=== PATIENT | female | born 1975 | race Caucasian/White ===

== ENCOUNTER 2017-03-11 11:50 | Outpatient (CLI) | payer BC ==
[2017-03-11 19:41] LABS: BASOPHILS % (AUTO) 0.6 %; EOSINOPHILS # (AUTO) 0.1 10^3/uL (0.0-0.7); HCT - HEMATOCRIT 43.3 % (37.0-47.0); HGB - HEMOGLOBIN 14.5 g/dL (12.0-16.0); LYMPHOCYTES # (AUTO) 1.9 10^3/uL (1.5-3.5); LYMPHOCYTES % (AUTO) 33.3 %; MEAN CORPUSCULAR HEMOGLOBIN 32.4 pg (27.0-31.0); MEAN CORPUSCULAR HGB CONC 33.4 g/dL (32.0-36.0); MEAN CORPUSCULAR VOLUME 97.1 fL (81.0-99.0); MEAN PLATELET VOLUME 12.4 fL (7.9-10.8); MONOCYTES # (AUTO) 0.4 10^3/uL (0.0-1.0); MONOCYTES % (AUTO) 7.3 %; NEUTROPHILS # (AUTO) 3.3 10^3/uL (1.5-6.6); NEUTROPHILS % (AUTO) 57.8 %; NUCLEATED RED BLOOD CELLS AUTO 0.2 /100WBC; RED BLOOD COUNT 4.46 10^6/uL (4.20-5.40); RED CELL DISTRIBUTION WIDTH 12.4 % (12.0-15.0); UNCORRECTED WHITE BLOOD COUNT 5.7 x10^3/uL; WHITE BLOOD COUNT 5.7 x10^3/uL (4.8-10.8)
[2017-03-11 19:45] LABS: BILIRUBIN,TOTAL 0.7 mg/dL (0.2-1.0); CALCIUM 9.4 mg/dL (8.5-10.3); CREATININE 0.7 mg/dL (0.4-1.0); POTASSIUM 4.2 mmol/L (3.5-5.0)
[2017-03-11 20:05] LABS: FERRITIN 14.7 ng/mL (11.0-306.8)
[2017-03-11 20:11] LABS: PLATELET ESTIMATE, MANUAL NORMAL (130-450,000) (NORMAL); WBC MORPHOLOGY (MULTIPLE) NORMAL APPEARANCE (NORMAL)
[2017-03-11 20:19] LABS: THYROID STIMULATING HORMONE 0.83 uIU/mL (0.34-5.60)
== END 2017-03-11 23:59 | disposition home or self-care (01) ==
LOC: LAB.WCP 11:50
PROVIDERS: ATTEND Physician Assistant Medical
DX: Z00.00 Encounter for general adult medical examination without abnormal findings (principal); R53.83 Other fatigue
CPT/HCPCS: 36415; 80053; 82728; 83540; 84443; 84466; 85025

== ENCOUNTER 2017-03-26 09:42 | Outpatient (CLI) | payer BC ==
--- NOTE | 2017-03-26 12:52 | Ultrasound Report ---
RENAL ULTRASOUND: 03/26/2017 CLINICAL INDICATION: Nephrolithiasis, history of congenital anomaly. COMPARISON: Renal ultrasound 03/17/2015, CT 02/14/2012. TECHNIQUE: Real-time scanning was performed with corporate sales representative static images obtained. FINDINGS: The right kidney measures 13.5 x 5.7 x 4.5 cm, and the left kidney measures 12.1 x 5.2 x 5 .1 cm. The left kidney again demonstrates nephrolithiasis. Mild hydronephrosis is seen. The right kidney appears unremarkable. Prevoid, the urinary bladder measures 13.6 x 11.0 x 9.2 cm, yielding a prevoid volume of 731 mL. Dick ateral ureteral jets are seen. Postvoid residual is 354 mL. IMPRESSION: LEFT NEPHROLITHIASIS. POSTVOID RESIDUAL OF 354 ML. JOB #: [id number] EXT JOB #:[id number]
--- NOTE | 2017-03-26 13:34 | Ultrasound Report ---
PELVIC ULTRASOUND: 03/26/2017 CLINICAL INDICATION: Right adnexal palpable abnormality on physical examination. TECHNIQUE: Transabdominal pelvic ultrasound performed for global evaluation. Transvaginal pelvic ul trasound performed for detailed evaluation. Real-time scanning performed and static images obtained. COMPARISON: 12/19/2014, 10/14/2014 FINDINGS: The uterus is anteverted, measuring 10.2 x 5.6 x 4.3 cm. The endometrium remains prominen t, now measuring 26 mm, and appears heterogeneous. No focal myometrial lesion is seen. The right ov brigitte measures 2.8 x 1.7 x 1.3 cm, and appears unremarkable. The left ovary measures 3.4 x 2.4 x 1.9 c m, and contains a 2.0 cm hemorrhagic cyst. Trace free fluid is noted in the cul-de-sac. IMPRESSION: PERSISTENT PROMINENCE OF THE ENDOMETRIUM, WHICH AGAIN APPEARS HETEROGENEOUS. A 2.0 CM H EMORRHAGIC LEFT OVARIAN CYST. JOB #: [id number] EXT JOB #:[id number]
== END 2017-03-26 09:43 | disposition home or self-care (01) ==
LOC: DI 09:42
PROVIDERS: ATTEND Physician Assistant Medical
DX: N20.0 Calculus of kidney (principal); Q63.9 Congenital malformation of kidney, unspecified; N13.30 Unspecified hydronephrosis; R19.09 Other intra-abdominal and pelvic swelling, mass and lump; N83.202 Unspecified ovarian cyst, left side; N63 Unspecified lump in breast; Z98.82 Breast implant status
CPT/HCPCS: 76770; 76830; 76856; 77066

== ENCOUNTER 2017-03-26 09:43 | Outpatient (CLI) | payer BC ==
--- NOTE | 2017-03-26 16:10 | Mammography Report ---
DIGITAL DIAGNOSTIC BILATERAL MAMMOGRAM: 03/26/2017 CLINICAL INDICATION: A 41-year-old with history of bilateral augmentation, palpable folds in left imp lant, question left implant rupture. TECHNIQUE: Bilateral CC, MLO, left true lateral, bilateral implant-displaced views were obtained. This is the patient's baseline examination. FINDINGS: The breasts demonstrate heterogeneously dense fibroglandular parenchyma bilaterally. Bilat eral subpectoral saline implants are present, without evidence of implant rupture. No suspicious mass es, clustered microcalcifications, or regions of architectural distortion are identified. IMPRESSION: BENIGN FINDINGS. NO EVIDENCE OF LEFT IMPLANT RUPTURE. RECOMMENDATION: ROUTINE ANNUAL SCREENING UNLESS OTHERWISE CLINICALLY INDICATED. BIRADS CATEGORY 2-BENIGN FINDINGS. STANDARD QUALIFYING STATEMENTS 1. This examination was reviewed with the aid of Computer-Aided Detection (CAD). 2. A negative or benign imaging report should not delay biopsy if clinically suspicious findings are present. Consider surgical consultation if warranted. More than 5% of cancers are not identified by i maging. 3. Dense breasts may obscure an underlying neoplasm. JOB #: [id number] EXT JOB #:[id number]
== END 2017-03-26 09:44 | disposition home or self-care (01) ==
LOC: DI 09:43
PROVIDERS: ATTEND Physician Assistant Medical
DX: Z12.31 Encounter for screening mammogram for malignant neoplasm of breast (principal); Z98.82 Breast implant status
CPT/HCPCS: 77066

== ENCOUNTER 2017-11-26 08:00 | Outpatient (CLI) | payer BC | END 2017-11-26 23:59 | disposition home or self-care (01) | LOC: LAB.WCP 08:00 | PROVIDERS: ATTEND Physician Assistant Medical | DX: N20.0 Calculus of kidney (principal) | CPT/HCPCS: 82365 ==

== ENCOUNTER 2018-03-10 15:00 | Outpatient (CLI) | payer BC | END 2018-03-10 15:01 | LOC: LAB.R 15:00 | PROVIDERS: ATTEND Family Medicine | DX: R31.9 Hematuria, unspecified (principal) | CPT/HCPCS: 87086 ==

== ENCOUNTER 2018-03-13 07:12 | Outpatient (CLI) | payer BC ==
--- NOTE | 2018-03-13 11:16 | CT Report ---
Procedure Date: 03/13/2018 Accession Number: [id number] / [id number] Procedure: CT - Abdomen/Pelvis W/O CPT Code: FULL RESULT: EXAM: Abdomen/Pelvis W/O DATE: 03/13/2018 7:36 AM CLINICAL HISTORY: HEMATURIA, NEPHROLITHIASIS COMPARISON: None. TECHNIQUE: Routine axial helical CT imaging was performed through the abdomen and pelvis without IV contrast. Reconstructions: Coronal and sagittal In accordance with CT protocol optimization, one or more of the following dose reduction techniques were utilized for this exam: automated exposure control, adjustment of mA and/or KV based on patient size, or use of iterative reconstructive technique. FINDINGS: Lung Bases: Normal. Right Kidney/Ureter: 1 to 2 mm calculi in the right renal collecting system. No right hydronephrosis or hydroureter. Left Kidney/Ureter: Moderate left hydronephrosis and hydroureter. 6 mm calculus in the mid left ureter, at the mid L4 vertebral body level. Multiple 2 to 3 mm calculi in the left renal collecting system. Other Solid Organs: Noncontrast images of the solid organs are grossly unremarkable. Gallbladder/Bile Ducts: Unremarkable. Peritoneal Cavity: No free fluid, free air or elliot adenopathy. Bowel is grossly unremarkable. Pelvic Organs: No bladder stones or wall thickening. Noncontrast images of the visualized pelvic organs are unremarkable. Vasculature: Unremarkable. Other: None. IMPRESSION: Obstructing 6 mm calculus in the left mid ureter, producing hydronephrosis. Bilateral smaller upper tract calculi. No right hydronephrosis. [facility]
== END 2018-03-13 07:13 | disposition home or self-care (01) ==
LOC: DI 07:12
PROVIDERS: ATTEND Family Medicine
DX: N13.2 Hydronephrosis with renal and ureteral calculous obstruction (principal)
CPT/HCPCS: 74176

== ENCOUNTER 2018-08-19 21:04 | Outpatient (CLI) | payer BC ==
--- NOTE | 2018-08-19 22:15 | XRAY Report ---
Reason: CALCULUS OF KIDNEY Procedure Date: 08/19/2018 Accession Number: [id number] / [id number] Procedure: XR - Abdomen 1 View X-Ray CPT Code: 22096 FULL RESULT: EXAM: ABDOMEN RADIOGRAPHY EXAM DATE: 08/19/2018 09:33 PM. CLINICAL HISTORY: CALCULUS OF KIDNEY. COMPARISON: ABDOMEN 1 VIEW 03/10/2018 3:34 PM. TECHNIQUE: 1 view. FINDINGS: Bowel Gas Pattern: Within normal limits. No dilated loops. Other: There are calcific densities overlying the left kidney less conspicuous than on the prior study. There are no calculi in the region of the distal ureters nor the urinary bladder. IMPRESSION: 1. A few vague calcific densities overlying the left kidney. Findings are less conspicuous than on the prior study. [facility]
--- NOTE | 2018-08-19 22:26 | Ultrasound Report ---
Reason: CALCULUS OF KIDNEY Procedure Date: 08/19/2018 Accession Number: [id number] / [id number] Procedure: US - Retroperitoneal CPT Code: FULL RESULT: EXAM: RENAL ULTRASOUND EXAM DATE: 08/19/2018 09:28 PM. CLINICAL HISTORY: CALCULUS OF KIDNEY. COMPARISON: RETROPERITONEAL 03/26/2017 9:52 AM. TECHNIQUE: Real-time scanning was performed with static images obtained. FINDINGS: Right Kidney: 12 x 4.6 x 5.6 cm. Normal echotexture with no stones, contour-deforming masses, or hydronephrosis. Left Kidney: 11.2 x 5.1 x 4.1 cm. There is mild left-sided hydronephrosis. There is a 4 mm echogenic focus lower pole of the left kidney. Bladder: Bilateral jets seen. The prevoid bladder volume was 371 cc. The postvoid bladder volume was 2.8 cc. Other: None. IMPRESSION: 1. Mild left-sided hydronephrosis with a small calculus near the lower pole of the left kidney. RAD[facility]
== END 2018-08-19 21:05 | disposition home or self-care (01) ==
LOC: DI 21:04
PROVIDERS: ATTEND Urology
DX: N13.2 Hydronephrosis with renal and ureteral calculous obstruction (principal)
CPT/HCPCS: 74018; 76770

== ENCOUNTER 2020-03-23 08:55 | Outpatient (CLI) | payer BC ==
[2020-03-23 11:58] LABS: BASOPHILS % (AUTO) 0.9 %; EOSINOPHILS # (AUTO) 0.2 10^3/uL (0.0-0.7); EOSINOPHILS % (AUTO) 3.2 %; HGB - HEMOGLOBIN 14.5 g/dL (12.0-16.0); LYMPHOCYTES # (AUTO) 1.2 10^3/uL (1.5-3.5); LYMPHOCYTES % (AUTO) 26.6 %; MEAN CORPUSCULAR HEMOGLOBIN 33.2 pg (27.0-31.0); MEAN CORPUSCULAR HGB CONC 33.2 g/dL (32.0-36.0); MEAN PLATELET VOLUME 13.7 fL (7.9-10.8); MONOCYTES # (AUTO) 0.5 10^3/uL (0.0-1.0); MONOCYTES % (AUTO) 9.6 %; NEUTROPHILS # (AUTO) 2.8 10^3/uL (1.5-6.6); NEUTROPHILS % (AUTO) 59.3 %; PLT - PLATELET COUNT 179 10^3/uL (130-450); RED BLOOD COUNT 4.37 10^6/uL (4.20-5.40); RED CELL DISTRIBUTION WIDTH 12.3 % (12.0-15.0); WHITE BLOOD COUNT 4.7 x10^3/uL (4.8-10.8)
[2020-03-23 12:19] LABS: ALBUMIN 4.5 g/dL (3.2-5.5); BILIRUBIN,TOTAL 0.7 mg/dL (0.2-1.0); CALCIUM 9.2 mg/dL (8.5-10.3); CREATININE 0.7 mg/dL (0.4-1.0); TOTAL PROTEIN 6.8 g/dL (6.7-8.2)
== END 2020-03-23 23:59 | disposition home or self-care (01) ==
LOC: LAB.WCP 08:55
PROVIDERS: ATTEND Physician Assistant Medical
DX: Z00.00 Encounter for general adult medical examination without abnormal findings (principal); R63.5 Abnormal weight gain
CPT/HCPCS: 36415; 80053; 84443; 84702; 85025

== ENCOUNTER 2023-02-20 19:35 | Outpatient (CLI) | payer BC ==
--- NOTE | 2023-02-21 10:23 | Ultrasound Report ---
PROCEDURE: Pelvic w/Transvaginal INDICATIONS: DYSMENORRHEA. History of ablation in 2019. TECHNIQUE: Real-time scanning was performed of the pelvic organs, with image documentation. Additional endovagi nal scanning was necessary due to incomplete visualization of the adnexal and endometrial structures by transabdominal scanning. COMPARISON: None. FINDINGS: Uterus: Uterus is anteverted and normal in size at 6.7 x 5.3 x 6.2 cm. The myometrium is heterogene ous. The endometrium measures 13.1 mm in combined thickness. Intramural fibroid measuring 1.4 cm. Ovaries: The right ovary measures 2.8 x 2.6 x 2.8 cm, with a calculated ovarian volume of 10.7 cc. The left ovary measures 2.5 x 1.6 x 3.0 cm, with a calculated ovarian volume of 6.0 cc. The ovaries have a normal sonographic appearance. Less than 12 follicles can be seen in each ovary. No adnexal masses are seen. No cystic lesions measuring greater than 3 cm. Solid-appearing lesion with crenulate d syed and no internal vascularity measuring 1.7 x 1.4 x 2.1 cm. Other: No pathologic free abdominal or pelvic fluid. IMPRESSION: Endometrial stripe measures 13 mm, greater than expected status post ablation. Suspect right hemorrhagic corpus luteum. Consider follow-up in 6-12 weeks. Reviewed by: Gulshan Pepper on 02/21/2023 9:21 AM [facility] Approved by: Gulshan Pepper on 02/21/2023 9:21 AM [facility] Station ID: [id number]
== END 2023-02-20 19:36 | disposition home or self-care (01) ==
LOC: DI 19:35
PROVIDERS: ATTEND Physician Assistant Medical
DX: N94.6 Dysmenorrhea, unspecified (principal)

== ENCOUNTER 2023-05-25 07:49 | Outpatient (CLI) | payer BC ==
--- NOTE | 2023-05-25 20:19 | Ultrasound Report ---
PROCEDURE: Pelvic w/Transvaginal INDICATIONS: CORPUS LUTEUM CYST OF OVARY TECHNIQUE: Real-time scanning was performed of the pelvic organs, with image documentation. Additional endovagi nal scanning was necessary due to incomplete visualization of the adnexal and endometrial structures by transabdominal scanning. COMPARISON: 02/20/2023 FINDINGS: Uterus: Uterus is anteverted and normal in size at 5.4 x 5 x 5.4 cm. The myometrium is homogeneous. The endometrium measures 7 mm in combined thickness. 2 fibroids are seen, the largest measuring 1 cm. Ovaries: The right ovary measures 2.9 x 1.9 x 1.6 cm, with a calculated ovarian volume of 4.6 cc. Th e previously seen abnormal right ovarian cyst has resolved. A dominant right ovarian cystic follicle is seen that measures up to 1.6 cm, which is considered to be within physiologic limits. The left ovary measures 2.3 x 1.4 x 1.6 cm, with a calculated ovarian volume of 2.6 cc. Less than 12 follicles can be seen in each ovary. No adnexal masses are seen. No cystic lesions lucero uring greater than 3 cm. Other: No pathologic free abdominal or pelvic fluid. IMPRESSION: No abnormal ovarian cyst is now seen. Reviewed by: Iban Tellez MD on 05/25/2023 7:18 PM [facility] Approved by: Iban Tellez MD on 05/25/2023 7:18 PM [facility] Station ID: [id number]
== END 2023-05-25 07:50 | disposition home or self-care (01) ==
LOC: DI 07:49
PROVIDERS: ATTEND Physician Assistant Medical
DX: N83.10 Corpus luteum cyst of ovary, unspecified side (principal); R93.89 Abnormal findings on diagnostic imaging of other specified body structures

== ENCOUNTER 2023-08-16 09:47 | Outpatient (CLI) | payer BC ==
--- NOTE | 2023-08-16 10:40 | CT Report ---
PROCEDURE: ABDOMEN/PELVIS WO INDICATIONS: HIST OF NEPHROLITHIASIS TECHNIQUE: A CT scan of the abdomen and pelvis was performed without the use of intravenous contrast. Images we re recorded and evaluated at appropriate window settings. Reformats: coronal and sagittal. For radiat ion dose reduction, the following was used: automated exposure control, adjustment of mA and/or kV ac cording to patient size. COMPARISON: None. FINDINGS: Image quality: Excellent. Lung bases and heart: Unremarkable. Liver: No solid mass. Gallbladder and biliary tree: No radiopaque stones or wall thickening. No biliary dilation. Spleen: No splenomegaly. Pancreas: No pancreatic ductal dilation. Adrenals: No adrenal nodule. Kidneys and ureters: No hydronephrosis. A few punctate right-sided obstructive nephrolithiasis. Numer ous left-sided cortical and collecting system stones largest within the inferior pole measures 6 mm. This larger stone has a mean density of 760 Hounsfield units. Bowel and peritoneum: No bowel distension. No pathologic free fluid. Lymph nodes: No central or retroperitoneal adenopathy. Vessels: No infrarenal aortic aneurysm. PELVIS Reproductive organs: Unremarkable. Bladder: No wall thickness, accounting for underdistention. Pelvic lymph nodes: No pelvic adenopathy by size criteria. Bones: No aggressive osseous abnormality. Other: No significant ventral or inguinal hernia. IMPRESSION: Bilateral nonobstructive renal stones. The largest is within the inferior pole of the left kidney kerry suring 6 mm. Reviewed by: Bhavik Keith MD on 08/16/2023 9:39 AM [facility] Approved by: Bhavik Keith MD on 08/16/2023 9:39 AM [facility] Station ID: [id number]
--- NOTE | 2023-08-16 17:38 | Ultrasound Report ---
PROCEDURE: Retroperitoneal INDICATIONS: HIST OF NEPHROLITHIASIS TECHNIQUE: Real-time scanning was performed of the retroperitoneal organs, with image documentation. COMPARISON: CT abdomen pelvis 08/16/2023. FINDINGS: Kidneys: Kidneys are normal in size. Right kidney measures 12.2 cm long; left kidney measures 9.1 c m long. Right renal cortical thickness is 0.8 cm; left renal cortical thickness is 0.4 cm. No solid masses or hydronephrosis. Bilateral stones measuring up to 6 mm. Likely right renal cyst measuring 1 .2 cm. Bladder: Pre-void bladder volume is 314 mL. Post-void residual is 38 mL. Pre-void images demonstra te no intraluminal masses or stones. Small mobile debris seen within the urinary bladder. On pre-void images, bilateral ureteral jets are noted with color Doppler interrogation. (Of note, ureteral jets may not be detectable in up to 25% of cases due to insufficient differences in specific gravity betw een ureteral and bladder urine). Miscellaneous: No free abdominal fluid. IMPRESSION: 1.Bilateral nonobstructing stones measuring up to 6 mm. 2.Post void residual of 38 mL. Small mobile debris is seen within the urinary bladder, nonspecific an d can be seen with cystitis. Reviewed by: Jassi Powell MD on 08/16/2023 5:36 PM PST Approved by: Jassi Powell MD on 08/16/2023 5:36 PM PST Station ID: [id number]
== END 2023-08-16 09:48 | disposition home or self-care (01) ==
LOC: DI 09:47
PROVIDERS: ATTEND Nurse Practitioner Family
DX: Q63.9 Congenital malformation of kidney, unspecified (principal); R31.9 Hematuria, unspecified; Z87.442 Personal history of urinary calculi; N20.0 Calculus of kidney

== ENCOUNTER 2023-12-03 08:00 | Outpatient (CLI) | payer BC ==
[2023-12-03 12:38] LABS: BILIRUBIN,URINE NEGATIVE (NEGATIVE); GLUCOSE, URINE (UA) NEGATIVE (NEGATIVE); KETONES,URINE (UA) NEGATIVE (NEGATIVE); LEUKOCYTE ESTERASE, URINE NEGATIVE (NEGATIVE); NITRITE,URINE NEGATIVE (NEGATIVE); OCCULT BLOOD,URINE LARGE (NEGATIVE); PROTEIN,URINE TRACE mg/dL (NEGATIVE); UROBILINOGEN,URINE 0.2 (NORMAL) E.U./dL (NORMAL)
[2023-12-03 12:39] LABS: CLARITY,URINE HAZY (CLEAR)
[2023-12-03 12:56] LABS: BACTERIA,URINE Few /HPF (None Seen); RBC,URINE TNTC /HPF (0-5); SQUAMOUS EPITHELIAL CELL,UR RARE Squamous (<= Few)
== END 2023-12-03 23:59 | disposition home or self-care (01) ==
LOC: LAB.N 08:00
PROVIDERS: ATTEND Physician Assistant
DX: R10.9 Unspecified abdominal pain (principal)
CPT/HCPCS: 81001; 87086

== ENCOUNTER 2023-12-04 21:05 | Outpatient (CLI) | payer BC ==
--- NOTE | 2023-12-05 12:41 | Ultrasound Report ---
PROCEDURE: Renal (Retroperitoneal) INDICATIONS: FLANK PAIN TECHNIQUE: Real-time scanning was performed of the retroperitoneal organs, with image documentation. COMPARISON: Retroperitoneal ultrasound on August 16, 2023. FINDINGS: Kidneys: Kidneys are normal in size. Right kidney measures 13.1 cm long; left kidney measures 13.1 cm long. Right renal cortical thickness is 1.3 cm; left renal cortical thickness is 1.5 cm. No norris d masses or hydronephrosis. Multiple bilateral nonobstructive nephroliths measuring up to 4 mm on the right and 4 mm on the left. Bladder: Pre-void bladder volume is 366 mL. Post-void residual is 36 mL. Pre-void images demonstra te no intraluminal masses or stones. On pre-void images, bilateral ureteral jets are noted with colo r Doppler interrogation. (Of note, ureteral jets may not be detectable in up to 25% of cases due to insufficient differences in specific gravity between ureteral and bladder urine). Miscellaneous: No free abdominal fluid. Small volume of fluid within the endometrial canal, likely physiologic. IMPRESSION: 1.No hydronephrosis bilaterally. 2.Bilateral nonobstructive nephroliths measuring up to 4 mm bilaterally. Reviewed by: Patricia Zimmer MD on 12/05/2023 12:40 PM PST Approved by: Patricia Zimmer MD on 12/05/2023 12:40 PM PST Station ID: [id number]
== END 2023-12-04 21:06 | disposition home or self-care (01) ==
LOC: DI 21:05
PROVIDERS: ATTEND Physician Assistant
DX: N20.0 Calculus of kidney (principal)

== ENCOUNTER 2023-12-05 07:36 | Outpatient (CLI) | payer BC ==
[2023-12-05 12:42] LABS: ALBUMIN 4.4 g/dL (3.2-5.5); ALBUMIN/GLOBULIN RATIO 1.8 (1.0-2.2); ALKALINE PHOSPHATASE 57 IU/L (42-121); ALT ALANINE AMINOTRANSFERASE 12 IU/L (10-60); AST ASPARTATE AMINOTRANSFERASE 17 IU/L (10-42); BILIRUBIN,TOTAL 0.6 mg/dL (0.2-1.0); BUN - BLOOD UREA NITROGEN 14 mg/dL (6-20); CALCIUM 9.7 mg/dL (8.5-10.3); CARBON DIOXIDE - CO2 31 mmol/L (21-32); CHLORIDE 104 mmol/L (101-111); CHOL/HDL RATIO 2.9 (<4.4); CHOLESTEROL 197 mg/dL; CREATININE 0.7 mg/dL (0.6-1.3); GFR - MDRD 90 (>89); GLUCOSE 92 mg/dL (74-104); HDL CHOLESTEROL 69 mg/dL; LDL CHOLESTEROL,CALCULATED 115 mg/dL; LDL/HDL RATIO 1.7 (<4.4); POTASSIUM 4.3 mmol/L (3.5-4.5); SODIUM 139 mmol/L (135-145); TOTAL PROTEIN 6.8 g/dL (6.4-8.9); TRIGLYCERIDES 65 mg/dL (48-352); VLDL CHOLESTEROL 13 mg/dL
[2023-12-05 12:43] LABS: BASOPHILS # (AUTO) 0.1 10^3/uL (0.0-0.1); BASOPHILS % (AUTO) 1.1 %; EOSINOPHILS # (AUTO) 0.1 10^3/uL (0.0-0.7); EOSINOPHILS % (AUTO) 3.1 %; HCT - HEMATOCRIT 43.4 % (37.0-47.0); HGB - HEMOGLOBIN 14.3 g/dL (12.0-16.0); LYMPHOCYTES # (AUTO) 1.2 10^3/uL (1.5-3.5); LYMPHOCYTES % (AUTO) 25.6 %; MEAN CORPUSCULAR HEMOGLOBIN 32.6 pg (27.0-31.0); MEAN CORPUSCULAR HGB CONC 32.9 g/dL (32.0-36.0); MEAN CORPUSCULAR VOLUME 98.9 fL (81.0-99.0); MEAN PLATELET VOLUME 13.7 fL (7.9-10.8); MONOCYTES # (AUTO) 0.4 10^3/uL (0.0-1.0); MONOCYTES % (AUTO) 8.8 %; NEUTROPHILS # (AUTO) 2.8 10^3/uL (1.5-6.6); NEUTROPHILS % (AUTO) 61.2 %; PLT - PLATELET COUNT 195 10^3/uL (130-450); RED BLOOD COUNT 4.39 10^6/uL (4.20-5.40); RED CELL DISTRIBUTION WIDTH 12.1 % (12.0-15.0); WHITE BLOOD COUNT 4.5 x10^3/uL (4.8-10.8)
[2023-12-05 13:07] LABS: THYROID STIMULATING HORMONE 0.58 uIU/mL (0.34-5.60)
== END 2023-12-05 07:37 | disposition home or self-care (01) ==
LOC: LAB.N 07:36
PROVIDERS: ATTEND Physician Assistant Medical
DX: Z13.9 Encounter for screening, unspecified (principal)
CPT/HCPCS: 36415; 80053; 80061; 83721; 84443; 85025

== ENCOUNTER 2023-12-16 08:00 | Outpatient (CLI) | payer BC | END 2023-12-16 23:59 | disposition home or self-care (01) | LOC: LAB.N 08:00 | PROVIDERS: ATTEND Physician Assistant | DX: N20.0 Calculus of kidney (principal) | CPT/HCPCS: 82365 ==

== ENCOUNTER 2024-02-25 18:47 | Outpatient (CLI) | payer BC ==
--- NOTE | 2024-02-26 00:07 | Ultrasound Report ---
PROCEDURE: Pelvic Complete INDICATIONS: LOWER ABD PAIN TECHNIQUE: Transabdominal ultrasound of the pelvis was obtained. COMPARISON: None. FINDINGS: Uterine size: Uterus measures 9.4 x 4.7 x 5.9 cm, and is anteverted. Myometrium: The myometrium is heterogenous right anterior intramural fibroid 1.1 x 1.1 0.5 cm. The left posterior intramural fibroid 1.1 x 1.4 x 1.3 Endometrium: The endometrium measures 11.4 mm in combined thickness. Right ovary: The right ovary measures 2.5 x 2.0 x 3.4 cm. Calculated ovarian volume 8.9 cc. Left ovary: The left ovary measures 2.8 x 1.6 x 3.2 cm. Calculated ovarian volume 7.6 cc. Other: No pathologic free abdominal or pelvic fluid. IMPRESSION: Small uterine fibroids, slightly larger than the prior exam Reviewed by: Wayne Guzman MD on 02/25/2024 11:06 PM [facility] Approved by: Wayne Guzman MD on 02/25/2024 11:06 PM [facility] Station ID: [id number]
== END 2024-02-25 18:48 | disposition home or self-care (01) ==
LOC: DI 18:47
PROVIDERS: ATTEND Physician Assistant Medical
DX: D25.1 Intramural leiomyoma of uterus (principal)